=== PATIENT | male | born 1950 | race Caucasian/White ===

== ENCOUNTER 2017-01-27 05:45 | Inpatient (IN) ==
[2017-01-20 11:48] LABS: Basophils # 0.1 10*3/uL (0.0-0.2); Basophils % 0.7 % (0.0-0.8); Eosinophils # 0.2 10*3/uL (0.0-0.87); Eosinophils % 2.5 % (0.00-10.9); Hematocrit 42.6 VOL% (42.0-52.0); Hemoglobin 14.3 GM/DL (14.0-18.0); Immature Granulocytes Absolute 0.07 #; Lymphocytes # 1.7 10*3/uL (1.4-4.0); Lymphocytes % 22.8 % (21.2-54.2); Mean Corpuscular HGB Conc 33.6 GM/DL (32-36); Mean Corpuscular Hemoglobin 28 PG (27-34); Mean Corpuscular Volume 84.2 FL (87-102); Mean Platelet Volume 10.4 FL (9.6-12.0); Monocytes # 0.6 10*3/uL (0.11-0.8); Monocytes % 8.7 % (1.7-12.7); Neutrophils # 4.7 10*3/uL (1.4-7.4); Neutrophils % 64.3 % (38.7-73.9); Platelet Count 152 T/CUMM (130-400); Red Blood Count 5.06 MC/CUMM (3.8-5.5); Red Cell Distribution Width 14.7 % (9.3-17.3); White Blood Count 7.3 T/CUMM (4-12)
[2017-01-20 11:53] LABS: Apearance,Urine Slightly Hazy (Clear); Bilirubin,Urine Negative (Negative); Blood, Urine Negative (Negative); Glucose,Urine (UA) 50 mg/dL (Negative); Ketones,Urine Negative (Negative); Mucus,Urine Occasional /LPF (Occasional); Nitrite,Urine Negative (Negative); Protein,Urine Negative; RBC,Urine <1 /HPF (0-4); Squamous Epithelial Cell,Urine Occasional /HPF (0-10); Urine Color Yellow (Yellow); Urine Specific Gravity 1.018 (1.001-1.035); Urine Urobilinogen < 2.0 EU/DL (0.2-1.0); WBC,Urine 1 /HPF (0-6)
[2017-01-20 11:58] LABS: PT Patient Result 10.8 SECS; Partial Thromboplastin Time 28.2 SECS (0-40)
--- NOTE | 2017-01-20 12:14 | XRay Report ---
XR chest 2V Indication: Preop respiratory evaluation. Comparison: Chest x-ray 07/28/2016. Technique: PA and lateral chest x-ray was performed. Findings: Heart size, mediastinal contour, and hilar structures demonstrate no significant abnormalities. The lung parenchyma is clear. Bones and soft tissues demonstrate no significant abnormalities. Impression: 1. No active cardiopulmonary disease. 01/20/2017 12:11 PM PROCEDURE INTERPRETED AT [facility] DEPARTMENT OF RADIOLOGY Final Report Signed by: Dr. Pb Soni
[2017-01-20 12:22] LABS: Albumin 3.4 G/DL (3.4-5.0); Bilirubin,Total 0.6 MG/DL (0.2-1.0); Calcium 8.5 MG/DL (8.5-10.1); Osmolality,Calculated 285.7 MOS/KG (273-304); Potassium 4.1 MMOL/L (3.5-5.1); Total Protein 6.8 G/DL (6.4-8.3)
[2017-01-27] MEDS ORDERED: VANCOMYCIN 1,000 MG VIAL ONE ×2 (05:59→06:39)
[2017-01-27] MEDS ORDERED: ceFAZolin 1,000 MG VIAL ONE (05:59)
[2017-01-27] MEDS ORDERED: VANCOMYCIN INJ 1,000 MG in SODIUM CHLORIDE 0.9% 250 ML IV ONE ×2 (06:00→16:57)
[2017-01-27] MEDS ORDERED: SODIUM CHLORIDE 0.9% 100 ML IV ONE ×2 (06:00→09:00)
[2017-01-27] MEDS: LACTATED RINGERS 1,000 ML IV SCH ×2 (06:20→12:40)
[2017-01-27] MEDS ORDERED: BACITRACIN OINT 0.9 GM PACK TOP ONE (06:47)
--- NOTE | 2017-01-27 06:48 | History and Physical Update ---
History and Physical Update - History and Physical H&P was reviewed, the patient examined and there: are no changes in the patients condition since last H&P was completed.
[2017-01-27] MEDS ORDERED: TRANEXAMIC ACID 1,000 MG/10 ML VIAL IV ONE (06:51)
[2017-01-27] MEDS ORDERED: PHENYLEPHRINE 1 MG/10 ML SYRINGE IV ONE (07:00)
[2017-01-27] MEDS ORDERED: KETOROLAC 30 MG/1 ML VIAL ONE (07:00)
[2017-01-27] MEDS ORDERED: LIDOCAINE 1% 5 ML VIAL ONE (07:00)
[2017-01-27] MEDS ORDERED: GLYCOPYRROLATE 0.4 MG/2 ML VIAL ONE (07:00)
[2017-01-27] MEDS ORDERED: SUCCINYLCHOLINE 200 MG/10 ML VIAL ONE (07:00)
[2017-01-27] MEDS ORDERED: ONDANSETRON 4 MG/2 ML VIAL ONE (07:00)
[2017-01-27] MEDS ORDERED: PROPOFOL 200 MG/20 ML VIAL IV ONE (07:00)
[2017-01-27] MEDS ORDERED: ROPIVACAINE 0.5% 30 ML VIAL ONE (08:04)
[2017-01-27] MEDS ORDERED: GLUCAGON 1 MG VIAL IM PRN ×2 (08:56→16:40)
[2017-01-27] MEDS ORDERED: DEXTROSE 50% 25 GM/50 ML VIAL IV PRN ×2 (08:56→16:40)
[2017-01-27] MEDS ORDERED: diphenhydrAMINE CAP 25 MG CAPSULE PO PRN (08:57)
[2017-01-27] MEDS ORDERED: MORPHINE 2 MG/1 ML SYRINGE IV PRN ×2 (08:57)
[2017-01-27] MEDS ORDERED: ONDANSETRON 4 MG/2 ML VIAL IV PRN (08:57)
[2017-01-27] MEDS ORDERED: fentaNYL 100 MCG/2 ML VIAL ONE (08:58)
[2017-01-27] MEDS ORDERED: ePHEDrine 50 MG/ML AMP ONE (08:59)
[2017-01-27] MEDS ORDERED: MIDAZOLAM 2 MG/2 ML VIAL ONE (08:59)
[2017-01-27] MEDS ORDERED: HYDROmorphone 2 MG/1 ML VIAL ONE (08:59)
[2017-01-27] MEDS ORDERED: ACETAMINOPHEN 1,000 MG/100 ML VIAL IV ONE (09:00)
[2017-01-27] MEDS ORDERED: SEVOFLURANE 1 UNIT/15 MINUTE INH ONE (09:00)
--- NOTE | 2017-01-27 09:40 | Anesthesia Post-Op ---
Anesthesia Post OP - Post Ansesthetic Evaluation Patient seen in post op: Yes Resp: within normal limits CV: within normal limits Mental: within normal limits Temp: within normal limits Zvmi-[id number]-[id number]: within normal limits Nausea and Vomiting: within normal limits Pain: within normal limits
--- NOTE | 2017-01-27 10:39 | XRay Report ---
XR knee 2V RT Indication: Joint replacement (right knee) Comparison: No relevant comparison Technique: Frontal and lateral views of the right knee. Findings: Status post total right knee arthroplasty. No evidence of immediate hardware failure. Superficial skin oleksandr and surgical drain/s overlie the knee. Subcutaneous and joint space air noted which is likely postoperative. Enchondroma versus bone infarct within the distal femoral diaphysis measuring up to 5.7 cm. IMPRESSION: Status post total right knee arthroplasty. Enchondroma versus bone infarct within the distal femoral diaphysis measuring up to 5.7 cm. PROCEDURE INTERPRETED AT [facility] DEPARTMENT OF RADIOLOGY Final Report Signed by: Dr Collin Tineo
[2017-01-27] MEDS ORDERED: NITROGLYCERIN SL 0.4 MG TABLET SL PRN (11:53)
--- NOTE | 2017-01-27 11:53 | Operative Note ---
Date of procedure: 01/27/17 Procedure: DIAGNOSIS: Right knee primary osteoarthrosis PROCEDURE: Right total knee arthroplasty (cpt #26083) SURGEON: Zoey HYDROELECTRIC PLANT OPERATOR: Magnolia ANESTHESIA: Spinal with a postoperative adductor canal block PROCEDURE and FINDINGS: After adequate was induced, the patient's knee was prepped and draped in the usual sterile fashion. The limb was exsanguinated with Esmarch. Tourniquet was inflated to 300 mmHg. A median parapatellar approach was made. Femur was cut using an intramedullary guide and a 4 in 1 cutting jig in 5 degrees of valgus. ACL and menisci were excised. Tibia was cut using intramedullary guide. Patella was cut using freehand technique. Components were trialed. Tibial fin was prepared. Components are cemented in place using Palacos cement and modern cementing techniques. Cement was removed. A 1/8 inch Hemovac drain was placed. The knee was well-balanced and full range of motion with central tracking patella. Deep layers closed with 0-0 Vicryl. Superficial layers were closed with 2-0 and 3-0 Vicryl. Skin was approximated with oleksandr. Bacitracin and a sterile dressing was applied. Patient was transferred to recovery. A postoperative adductor canal block is anticipated. COMPONENTS: The Pepe Persona system was used. 12 CR femur, H natural tibia, 10 mm liner, 38 mm patella TOURNIQUET TIME: 45 minutes Surgeon / Physician: Andres Greer Jr. Results - Labs CBC & BMP: 01/20/17 11:37 01/20/17 11:37 Discharge Plan - Discharge Medications No Action Atorvastatin [Lipitor] 40 mg PO BEDTIME Aspirin [Ecotrin] 81 mg PO BEDTIME Glimepiride 4 mg PO BID Omeprazole Magnesium [Prilosec Otc] 20 mg PO DAILY Nitroglycerin Sl Tab [Nitrostat] 0.4 mg SL Q5M PRN PRN Reason: Pain Carvedilol [Coreg] 25 mg PO BID W/MEALS Insulin NPH Hum/Reg Insulin Hm [NovoLIN 70/30] 25 unit SUBCUT BID W/MEALS Clopidogrel [Plavix] 75 mg PO DAILY #30 tablet Furosemide Tab [Lasix Tab] 80 mg PO DAILY #30 tablet HYDROcodone/ACETAMIN 10-325 [[place] 10-325] 1 tablet PO Q4H PRN #30 tablet PRN Reason: Pain Severe (8-10) Isosorbide Dinitrate [Isordil] 20 mg PO TID #90 tablet hydrALAZINE TAB [Apresoline Tab] 100 mg PO TID #90 tablet Amlodipine Besylate 5 mg PO DAILY Montelukast Sodium 10 mg PO BEDTIME Cilostazol [Pletal] 50 mg PO BID Levothyroxine Tab [Synthroid Tab] 175 mcg PO DAILY@0700 Valsartan [Diovan] 160 mg PO DAILY #30 tablet Venlafaxine Xr [Effexor XR] 75 mg PO DAILY - Follow Up or Referral - Forms/Instructions
[2017-01-27] MEDS: INSULIN LISPRO 100 UNIT/ML SUBCUT SCH ×3 (13:30→21:58)
[2017-01-27] MEDS: DOCUSATE SODIUM 100 MG CAPSULE PO SCH ×2 (13:30→20:59)
[2017-01-27] MEDS: ACETAMINOPHEN 500 MG TABLET PO SCH ×2 (13:32→18:42)
[2017-01-27] MEDS: ceFAZolin 2,000 MG in PREMIX 1 EACH IV SCH ×2 (13:36→20:58)
--- NOTE | 2017-01-27 13:51 | Cardiology Consult Note ---
Jon Gaviria Vanessa, RN, am scribing for, and in the presence of, Romeo Emery MD 13:51. Assessment and Plan - Time spent with patient Time spent with patient: Greater than 30 minutes (Due to assessment, planning, talking patient, medication review) (1) STEFANI on CPAP Status: Chronic Assessment and plan: Patient uses CPAP routinely and without fail. Current Visit: Yes (2) Chronic kidney disease, stage III (moderate) Status: Chronic Assessment and plan: Most recent creatinine 2.2 with GFR 47 on January 20. Review of old records documents renal insufficiency after July admission for volume overload and diastolic dysfunction which improved after diuresis but creatinine remained elevated 2-3. Appears baseline. Current Visit: No (3) Hypothyroid Status: Chronic Assessment and plan: Synthroid has been continued Current Visit: No (4) CAD (coronary artery disease), [place] coronary artery Status: Chronic Assessment and plan: Appears to be stable at this time. Plavix has been continued postoperatively. Current Visit: No (5) Diabetes mellitus Status: Chronic Assessment and plan: Accu-Chek 182. Continue current plan of care. Current Visit: No Qualifiers: (6) Dyslipidemia Status: Chronic Assessment and plan: Statin continued postoperatively. Current Visit: No (7) HTN (hypertension) Status: Chronic Assessment and plan: Suboptimally controlled at this time. His routine antihypertensives have been resumed postoperatively, and we will follow-up. Current Visit: No (8) Morbid obesity Status: Chronic Current Visit: No History of Present Illness - Data of Consult Patient: known to practice within the last 3 years Consult date: 01/27/17 Requesting Physician: Andres Greer Jr. 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 GOODE CARDIOLOGY CONSULT NOTE: PERIOPERATIVE MANAGEMENT; S/P RIGHT TKR Mr. Coates is a 66 year old white male with risk factors significant for: Hypertension, dyslipidemia, diabetes, morbid obesity, age, sedentary lifestyle, personal and family history of CAD, former tobacco use. He has obstructive sleep apnea and uses CPAP routinely. Past medical history includes hypothyroidism, chronic kidney disease, DVT, PAD, bladder cancer. Last cardiac catheterization in September 2015, and at that time he underwent percutaneous coronary intervention to the mid circumflex using drug-eluting stent and PTCA of first diagonal branch. 2D echo July 2016 with moderate LVH and diastolic dysfunction with ejection fraction 55%, mild TR with PA pressure of 14.6 mmHg. He required preoperative cardiovascular clearance due to cardiac history, and he was seen by Dr. Jigar Goode clinic on January 24. 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 He was low to moderate risk for cardiovascular event. Admitted to hospital today for right total knee replacement. Cardiology is asked to see for perioperative management. He is awake and alert visiting with family at bedside. Denies recent or current chest pain, shortness of breath, orthopnea, PND, palpitations. His only complaint at this time is of some mild knee discomfort at surgical site. Right lower extremity with dry and intact surgical dressing, drain cooling mechanism in place. Systolic BP is 150-160 mm artery. Pulse is 70s and regular by exam. No significant lower extremity edema, distal pulses present and palpable bilaterally. Patient is stable postop and doing well. We will follow serial EKGs. CC: Andres Greer Jr., - Home Medications and Allergies Home Medications: Home Medications Medication Instructions Recorded Confirmed Type Aspirin [Ecotrin] 81 mg PO BEDTIME 09/17/15 01/27/17 History Atorvastatin [Lipitor] 40 mg PO BEDTIME 09/17/15 01/27/17 History Glimepiride 4 mg PO BID 09/17/15 01/27/17 History Nitroglycerin Sl Tab [Nitrostat] 0.4 mg SL Q5M PRN 10/01/15 01/27/17 History Omeprazole Magnesium [Prilosec Otc] 20 mg PO DAILY 10/01/15 01/27/17 History Carvedilol [Coreg] 25 mg PO BID W/MEALS 07/28/16 01/27/17 History Insulin NPH Hum/Reg Insulin Hm 25 unit SUBCUT BID W/MEALS 07/28/16 01/27/17 History [NovoLIN 70/30] Levothyroxine Tab [Synthroid Tab] 175 mcg PO DAILY@0700 07/28/16 01/27/17 History Clopidogrel [Plavix] 75 mg PO DAILY #30 tablet 07/31/16 01/27/17 Rx Furosemide Tab [Lasix Tab] 80 mg PO DAILY #30 tablet 07/31/16 01/27/17 Rx HYDROcodone/ACETAMIN 10-325 [[place] 1 tablet PO Q4H PRN #30 tablet 07/31/1601/27 Rx 10-325] Isosorbide Dinitrate [Isordil] 20 mg PO TID #90 tablet 07/31/16 01/27/17 Rx Valsartan [Diovan] 160 mg PO DAILY #30 tablet 07/31/16 01/27/17 Rx hydrALAZINE TAB [Apresoline Tab] 100 mg PO TID #90 tablet 07/31/16 01/27/17 Rx Amlodipine Besylate 5 mg PO DAILY 01/20/17 01/27/17 History Cilostazol [Pletal] 50 mg PO BID 01/20/17 01/27/17 History Montelukast Sodium 10 mg PO BEDTIME 01/20/17 01/27/17 History Venlafaxine Xr [Effexor XR] 75 mg PO DAILY 01/20/17 01/27/17 History Allergies/Adverse Reactions: Allergies Allergy/AdvReac Type Severity Reaction Status Date / Time codeine Allergy Unknown Verified 09/16/15 14:14 meperidine [From Demerol] AdvReac Hallucinati Verified 12/11/14 08:57 ng - Constitutional Constitutional: Present: as per HPI - EENT Eyes: Present: as per HPI Ears: Present: as per HPI Nose, mouth and throat: Present: as per HPI - Cardiovascular Cardiovascular: Present: as per HPI - Respiratory Respiratory: Present: as per HPI - Gastrointestinal Gastrointestinal: Present: as per HPI - Genitourinary Genitourinary: Present: as per HPI - Musculoskeletal Musculoskeletal: Present: as per HPI - Neurological Neurological: Present: as per HPI - Psychiatric Psychiatric: Present: as per HPI - Endocrine Endocrine: Present: as per HPI - Hematologic/Lymphatic Hematologic/Lymphatic: Present: as per HPI Medical,Surgical,& Family Hx - Medical History Cardio: History of: Cerebrovascular Disease, CHF, CAD, Hypertension, MD, PVD, Cardiovascular Problems No history of: Aneurysm, Cardiac Dysrhythmia, Congenital Heart Disease, Pacemaker, Valvular Heart Disease Psychological: History of: Depression No history of: Anxiety Disorders, ADHD, Behavior Problems, Bipolar Disorder, Previous Suicide Attempt, Psychiatric/Substance Abuse Tx, Schizophrenia, Violent Behavior, Psychiatric Problems Neurology: History of: TIA No history of: Seizures HEENT: History of: Ear Problem (busted eardrum), Eye Problem (GLASSES), Dental Problems (multiple teeth removed) No history of: Glaucoma, Oral Cancer, HEENT Problems Endocrine: History of: Diabetes Mellitus (IDDM), Diabetes Mellitus (NIDDM), Dyslipidemia, Thyroid Disorder, Endocrine Problems No history of: Adrenal Disease, Endocrine Cancer Rheumatology: History of;: Rheumatological Problems No history of;: Fibromyalgia, Gout, Myasthenia Gravis, Psoriasis, Rheumatoid Arthritis, Sjogrens, Systemic Lupus Erythematosus Respiratory: History of: Intubation, Obstructive Sleep Apnea (Cpap) No history of: Asthma, Bronchitis, COPD, Pulmonary Embolism, Pulmonary Hypertension, Pneumonia, Lung Cancer, Respiratory Problems Renal: History of: Renal (Kidney) Cancer, Renal Problems (low-grade chronic renal failure) No history of: Dialysis, Renal Failure Genitourinary: History of: Bladder Problem (TUMORS REMOVED), Kidney Stones, Prostate Problems (SMALL FOR PT AGE DR CARL), Genitourinary Cancer, Problems No history of: Recurring Urinary Tract Infections Gastrointestinal: History of: GERD, Hemorrhoids, Pancreatitis No history of: Bowel Obstruction, Clostridium Difficile, Crohn's Disease, Diverticulitis/ Diverticulosis, Esophageal Varices, Gastrointestinal Bleed, Hematochezia, Hepatitis, Liver Problems, Polyps, Ulcerative Colitis, Gastrointestinal Cancer, GI Problems Musculoskeletal: History of: Back/Neck Problems, Musculoskeletal Problems No history of: Amputation, Degenerative Disk Disease, Herniated Disk, Osteoporosis, Musculoskeletal Cancer Hematology: No history of: Anemia, Blood Transfusion Reaction, Bleeding Problems, Clotting Problems, Sickle Cell Disease, Hematologic Cancer, Blood Disorders Other: History of: Cancer (bladder tumors), Miscellaneous Medical Problems No history of: Anesthesia Reactions, Anaphylaxis, Eczema, HIV, Malignant Hyperthermia, MRSA, Vancomycin-Resistant Enterococci, Skin Problems - Surgical History Cardiac Surgeries: Sugical HX of: Cardiac Catheterization ([address] BETHEA) Patient Denies: Femoral-Popliteal Bypass Graft, Cardiac Surgery, Carotid Endarterectomy, Internal Defibrillator, Vascular Access Devices Thoracic Surgeries: Surgical HX of;: Lithotripsy Patient denies;: Kidney (Renal Surgery), Nephrectomy, Organ Transplant, Lobectomy Neurologic Surgeries: Patient denies: Neurologic Surgery HEENT Surgeries: Patient denies: Carotid Endarterectomy, Eye Surgery, Thyroid Surgery, Tonsilectomy & Adenoidectomy Abdominal Surgeries: Surgical HX of: Abdominal Surgery, Cholecystectomy, EGD Patient denies: Appendectomy, Colonoscopy, Gastric Bypass Surgery, Hernia Repair, Splenectomy Reproductive Surgeries: Surgical HX of;: Cystoscopy, Genitourinary Surgery Patient denies;: Prostate Surgery Orthopedic Surgeries: Surgical HX of;: Orthopedic Surgery, Total Knee Replacement (RIGHT) Patient denies;: Implanted Devices, Spinal Surgery, Total Hip Replacement - Family History Family History: Reports;: Family Cancer (father - skin cancer), Family Diabetes (grandmother and siblings), Family Heart Disease (father), Family Hypertension ( father, sister,brother) Denies;: Family Anesthesia Reaction, Family Psychiatric Problems, Family Stroke - Social History Smoking Status: Never smoker Frequency of Alcohol Use: None Type of Drug Use: None Physical Examination Vital Signs Temp Pulse Resp BP Pulse Ox 98.5 F 61 20 152/75 97 01/27/17 06:24 01/27/17 06:24 01/27/17 06:24 01/27/17 06:24 01/27/17 06:24 General: Present: No Apparent Distress, Other (overweight) Neck: Present: Supple Neck, Midline Trachea, No JVD/HJR, No Masses, No Bruit Cardiac: Present: Reg Rate and Rhythm, No Murmur. Absent: Tachycardia, Bradycardia Lungs: Present: Oxygen, No Wheezes, Other (slightly coarse breath sounds left upper lobes) Neuro: Present: Grossly Intact. Absent: Tingling, Resting Tremor, Essential Tremor Abdomen: Present: Soft, Active Bowel Sounds, Other (obese). Absent: Ascites, Tender, Firm Skin: Present: Clear. Absent: Rash, Suspicious Lesions Musculoskeletal: Present: Decreased Range of Motion Extremities: Present: No Clubbing, No Cyanosis, No Edema, Normal Upper Extr. Pulses (3+ bilaterally), Normal Lower Extr. Pulses (2+ bilaterally), Capillary Refill (Normal). Absent: Edema Result/EKG - Labs CBC & BMP: 01/20/17 11:37 01/20/17 11:37 Lab Results: I have reviewed the past 24 hour labs Labs: Laboratory Results - last 24 hr 01/27/17 01/27/17 01/27/17 06:18 06:18 12:17 POC Glucose 84 182 H Blood Type A POSITIVE Antibody Screen Negative - Diagnostic Findings Procedure: Chest x-ray: image reviewed by me, report reviewed by me - EKG EKG results: interpreted by me, no acute changes EKG shows: sinus rhythm Quality Measures - VTE Contraindication to Pharmacological VTE Prophylaxis: Already on Theraputic Agent , No Prophylaxis Needed Rupert Gaviria Wesley, MD, personally performed the services described in this documentation, ascribed by Erin Webb RN in my presence, and it is both accurate and complete .
[2017-01-27] MEDS: ISOSORBIDE DINITRATE 20 MG TABLET PO SCH ×2 (16:44→20:59)
[2017-01-27] MEDS: CARVEDILOL 25 MG TABLET PO SCH (16:44)
[2017-01-27] MEDS: INSULIN NPH/REGULAR 70/30 100 UNIT/ML SUBCUT SCH (16:45)
[2017-01-27] MEDS: KETOROLAC 30 MG/1 ML VIAL IV SCH ×2 (16:46→21:59)
--- NOTE | 2017-01-27 17:39 | Orthopedic Progress Note ---
Orthopedics - Subjective Interval history: Comfortable. He sat in a chair roughly an hour. Dressing clean, dry and intact. Right lower extremities neurovascular change. Plan: Mobilize with physical therapy. Discussed discharge options. The patient 's son is hospitalized with a heart attack. Exam - Constitutional Vitals: Period Temp Pulse Resp BP Sys/Gardner Pulse Ox Last 24 Hr 97.0 F-98.9 F 61-77 12-20 93-160/56-90 92-98 Results - Labs CBC & BMP: 01/20/17 11:37 01/20/17 11:37 Quality Measures - VTE Contraindication to Pharmacological VTE Prophylaxis: Already on Theraputic Agent , No Prophylaxis Needed
[2017-01-27] MEDS: ASPIRIN EC 81 MG TABLET PO SCH (20:59)
[2017-01-27] MEDS: MONTELUKAST 10 MG TABLET PO SCH (20:59)
[2017-01-27] MEDS: CILOSTAZOL 50 MG TABLET PO SCH (20:59)
[2017-01-27] MEDS: ATORVASTATIN 40 MG TABLET PO SCH (20:59)
[2017-01-27] MEDS: GLIMEPIRIDE 4 MG TABLET PO SCH (21:00)
[2017-01-28] MEDS: ACETAMINOPHEN 500 MG TABLET PO SCH ×2 (00:02→07:48)
[2017-01-28] MEDS: LACTATED RINGERS 1,000 ML IV SCH ×3 (02:49→12:52)
[2017-01-28] MEDS: KETOROLAC 30 MG/1 ML VIAL IV SCH ×2 (03:46→09:45)
[2017-01-28] MEDS: oxyCODONE IR 5 MG TABLET PO PRN ×2 (03:46→22:20)
[2017-01-28 04:53] LABS: Basophils % 0.2 % (0.0-0.8); Hematocrit 35.6 VOL% (42.0-52.0); Hemoglobin 11.9 GM/DL (14.0-18.0); Immature Granulocytes % 0.9 %; Immature Granulocytes Absolute 0.09 #; Lymphocytes # 1.1 10*3/uL (1.4-4.0); Lymphocytes % 11.2 % (21.2-54.2); Mean Corpuscular HGB Conc 33.4 GM/DL (32-36); Mean Corpuscular Hemoglobin 28 PG (27-34); Mean Corpuscular Volume 82.8 FL (87-102); Mean Platelet Volume 11.1 FL (9.6-12.0); Monocytes # 0.9 10*3/uL (0.11-0.8); Monocytes % 8.6 % (1.7-12.7); Neutrophils # 7.9 10*3/uL (1.4-7.4); Neutrophils % 79.1 % (38.7-73.9); Platelet Count 140 T/CUMM (130-400); Red Cell Distribution Width 14.3 % (9.3-17.3)
[2017-01-28 05:24] LABS: Calcium 8.1 MG/DL (8.5-10.1); Potassium 4.3 MMOL/L (3.5-5.1)
--- NOTE | 2017-01-28 07:25 | EKG Report ---
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
[2017-01-28] MEDS: LEVOTHYROXINE 175 MCG TABLET PO SCH (07:49)
[2017-01-28] MEDS: INSULIN LISPRO 100 UNIT/ML SUBCUT SCH ×4 (07:56→21:55)
[2017-01-28] MEDS: INSULIN NPH/REGULAR 70/30 100 UNIT/ML SUBCUT SCH ×2 (07:57→17:36)
[2017-01-28] MEDS: CARVEDILOL 25 MG TABLET PO SCH ×2 (09:43→17:36)
[2017-01-28] MEDS: amLODIPine 5 MG TABLET PO SCH (09:44)
[2017-01-28] MEDS: ISOSORBIDE DINITRATE 20 MG TABLET PO SCH ×3 (09:44→20:16)
[2017-01-28] MEDS: VENLAFAXINE XR 75 MG CAPSULE PO SCH (09:44)
[2017-01-28] MEDS: CLOPIDOGREL 75 MG TABLET PO SCH (09:44)
[2017-01-28] MEDS: DOCUSATE SODIUM 100 MG CAPSULE PO SCH ×2 (09:44→20:15)
[2017-01-28] MEDS: CILOSTAZOL 50 MG TABLET PO SCH ×2 (09:44→20:15)
[2017-01-28] MEDS: FUROSEMIDE 80 MG TABLET PO SCH (09:44)
[2017-01-28] MEDS: GLIMEPIRIDE 4 MG TABLET PO SCH ×2 (09:44→20:16)
[2017-01-28] MEDS: VALSARTAN 160 MG TABLET PO SCH (09:44)
[2017-01-28] MEDS: PANTOPRAZOLE 40 MG TABLET PO SCH (09:45)
--- NOTE | 2017-01-28 10:36 | Physician Query Form ---
CLICK EDIT DOCUMENT TO SELECT QUERY ANSWER --> OK --> SIGN Ivelisse Hawkins RN Clinical Over The Road Driver W) [phone] (f) [phone] [email or web address]: Make your selection(s) from the choices in EACH section by typing an "x" and enter comments in the comment section. Please use your independent medical judgment in providing your response. This request does not imply that any particular answer is desired or expected. CLINICAL INDICATORS: (Providers should not edit this section) Based on documentation of "history of CHF", Echo done 07/29/16 showed normal LV systolic function, EF 55% with Grade 1/4 diastolic dysfunction. Pt. treated with PO Lasix as home medication. Please provide further specificity regarding CHF. TYPE: ( ) Systolic (HFrEF - heart failure with reduced systolic function/EF) ( ) Diastolic (HFpEF - heart failure with preserved systolic function/EF) ( ) Combined Systolic/Diastolic ( ) Other, please specify: ( ) Clinically unable to determine ( ) The patient does NOT have CHF COMMENTS: PLEASE ALSO DOCUMENT RESPONSE IN PROGRESS NOTES AND/OR DISCHARGE SUMMARY Use of terms such as suspected, likely, or probable (associated with a specific diagnosis that is being evaluated, monitored, or treated as if it exists) are acceptable and can be restated in the discharge summary if not ruled out. MTDD
--- NOTE | 2017-01-28 10:45 | Discharge Summary ---
Hospital Course - Hospital Course Hospital Course: Junior Coates was admitted after undergoing an uncomplicated right total knee arthroplasty. He received perioperative DVT and antimicrobial prophylaxis. Received physical therapy. Cardiology was consulted perioperatively. Right lower extremity shows some slight serosanguineous drainage distally. Is neurovascularly unchanged. Range of motion is from 0-90 actively today. Specialty Discharge - Follow Up or Referrals Follow up with: Andres Greer Jr., MD [Physician] - 03/03/17 8:35 am () Discharge Plan - Discharge Data Disposition: Disch/Xfer to Snf Condition at Discharge: Stable Discharge Diet: diabetic diet Hygiene: may shower Weight Bearing at Discharge: weight bear as tolerated Driving: not until seen by doctor - Discharge Medications New Insulin Lispro [HumaLOG] See Protocol SUBCUT ACHS unit HYDROcodone/ACETAMIN 10-325 [[place] 10-325] 1 tablet PO Q4H PRN tablet PRN Reason: Pain Moderate (4-7) Continue Atorvastatin [Lipitor] 40 mg PO BEDTIME Aspirin [Ecotrin] 81 mg PO BEDTIME Glimepiride 4 mg PO BID Omeprazole Magnesium [Prilosec Otc] 20 mg PO DAILY Nitroglycerin Sl Tab [Nitrostat] 0.4 mg SL Q5M PRN PRN Reason: Pain Carvedilol [Coreg] 25 mg PO BID W/MEALS Insulin NPH Hum/Reg Insulin Hm [NovoLIN 70/30] 25 unit SUBCUT BID W/MEALS Clopidogrel [Plavix] 75 mg PO DAILY #30 tablet Furosemide Tab [Lasix Tab] 80 mg PO DAILY #30 tablet HYDROcodone/ACETAMIN 10-325 [[place] 10-325] 1 tablet PO Q4H PRN #30 tablet PRN Reason: Pain Severe (8-10) Isosorbide Dinitrate [Isordil] 20 mg PO TID #90 tablet hydrALAZINE TAB [Apresoline Tab] 100 mg PO TID #90 tablet Amlodipine Besylate 5 mg PO DAILY Montelukast Sodium 10 mg PO BEDTIME Cilostazol [Pletal] 50 mg PO BID Levothyroxine Tab [Synthroid Tab] 175 mcg PO DAILY@0700 Valsartan [Diovan] 160 mg PO DAILY #30 tablet Venlafaxine Xr [Effexor XR] 75 mg PO DAILY - Follow Up or Referral Follow Up: Andres Greer Jr., MD [Physician] - 03/03/17 8:35 am () - Forms/Instructions Additional Discharge Instructions: Daily dry dressing changes. Weightbearing as tolerated. Arrange walker and bedside commode for home use. Wear BRANDY hose for 1 month. Discontinue oleksandr and Steri-Strip wound on February 08, 2017. Follow-up appointment in 4 weeks. Prescription for [place] 10 was written. Exam - Constitutional Vitals: Period Temp Pulse Resp BP Sys/Gardner Pulse Ox Last 24 Hr 98.0 F-99.1 F 69-86 17-20 117-169/57-95 93-99 Discharge Results Procedures and tests throughout hospitalization: Pending Orders 01/29/17 04:00 Comp Blood Count Auto Diff IN AM 01/30/17 04:00 Comp Blood Count Auto Diff IN AM Labs on day of discharge: Labs from last 24 hours 01/28/17 01/28/17 01/28/17 06:55 04:36 04:36 WBC 10.0 RBC 4.30 Hgb 11.9 L Hct 35.6 L MCV 82.8 L MCH 28 MCHC 33.4 RDW 14.3 Plt Count 140 MPV 11.1 Neut % (Auto) 79.1 H Lymph % (Auto) 11.2 L Williams % (Auto) 8.6 Eos % (Auto) 0.0 Baso % (Auto) 0.2 Neut # (Auto) 7.9 H Lymph # (Auto) 1.1 L Williams # (Auto) 0.9 H Eos # (Auto) 0.0 Baso # (Auto) 0.0 Immature Gran % 0.9 Nucleated RBC % 0.0 Immature Gran # 0.09 Nucleated RBCs # 0.00 Sodium 136 Potassium 4.3 Chloride 103 Carbon Dioxide 23 Anion Gap 14.3 BUN 37 H Creatinine 2.50 H GFR Calculation 41 BUN/Creatinine Ratio 14.00 Glucose 128 H POC Glucose 138 H Calculated Osmolality 282.0 Calcium 8.1 L 01/27/17 01/27/17 01/27/17 20:58 15:37 12:17 WBC RBC Hgb Hct MCV MCH MCHC RDW Plt Count MPV Neut % (Auto) Lymph % (Auto) Williams % (Auto) Eos % (Auto) Baso % (Auto) Neut # (Auto) Lymph # (Auto) Williams # (Auto) Eos # (Auto) Baso # (Auto) Immature Gran % Nucleated RBC % Immature Gran # Nucleated RBCs # Sodium Potassium Chloride Carbon Dioxide Anion Gap BUN Creatinine GFR Calculation BUN/Creatinine Ratio Glucose POC Glucose 255 H 253 H 182 H Calculated Osmolality Calcium DS: Provider Date of admission: 01/27/17 05:45 Primary care physician: ANGEL Tran Attending physician on admission: Andres Greer Jr., Consults: 01/27/17 08:57 Consult to Case Mgmt/Social Srvs [CONS] Routine Reason for Case Mgmt/Social Srvs: Rehab Home Health Equipment Consult Comment: Bedside Commode, CPM, Walker Consult to Occupational Therapy [CONS] Routine Reason for Occupational Therapy: Evaluate and Treat Consult Comment: ADL's Consult to Physical Therapy [CONS] Routine Reason for Physical Therapy: Evaluate and Treat Gait Training Start Therapy: Today 01/27/17 10:11 Consult to Physician [CONS] Routine Comment: Consulting Provider: Yung Lagunas Consulting Provider Notified: Yes When should Consulting Provider be notified: Now Person Notified: Carlos costa Date Notified: 01/27/17 Time Notified: 10:15 Discharging clinician: Andres Greer Jr., Expected date of discharge: 01/31/17
--- NOTE | 2017-01-28 11:16 | Pathology Report from [facility] ---
[facility] [place] ACCESSION # : [id number] PATIENT NAME : Junior Vero Hubbard ORDERING DR : ARTEMIO SÁNCHEZ MD CLINICAL HX: Right knee osteoarthritis POST-OP DX: Same SPECIMEN INFO: Right knee bone and tissue GROSS DESCRIPTION: Received in formalin labeled JUNIOR HUBBARD are multiple fragments of bone, cartilage and adipose tissue measuring collectively 14.5 x 15.8 cm. The articular surfaces are focally degenerative with areas of subchondral eburnation measuring up to 2 cm. Cardiac Rehab Nurse sections are submitted in one cassette. DIAGNOSIS FOR JUNIOR Vero HUBBARD: Fragments of right knee joint showing changes of degenerative joint disease/ osteoarthritis. COLLECTED DATE: 01/27/2017 [facility] REPORT DATE: 01/28/2017 ELECTRONICALLY SIGNED BY: Sami Masters M.D. 01/28/2017 - 9:26:33 [facility]
--- NOTE | 2017-01-28 11:34 | Cardiology Progress Note ---
Jon Gaviria Vanessa, RN, am scribing for, and in the presence of, Romeo Emery MD 11:34. Assessment and Plan - Time spent with patient Time spent with patient: Greater than 30 minutes (1) Status post total right knee replacement Status: Acute Assessment and plan: POD #1 s/p right knee replacement. Current Visit: Yes (2) STEFANI on CPAP Status: Chronic Assessment and plan: Patient uses CPAP routinely and without fail. Current Visit: Yes (3) Chronic kidney disease, stage III (moderate) Status: Chronic Assessment and plan: Most recent creatinine 2.5 with GFR 41. Review of old records documents renal insufficiency after July admission for volume overload and diastolic dysfunction which improved after diuresis but creatinine remained elevated 2-3. Appears baseline. Current Visit: No (4) Hypothyroid Status: Chronic Assessment and plan: Synthroid has been continued Current Visit: No (5) CAD (coronary artery disease), [place] coronary artery Status: Chronic Assessment and plan: Appears to be stable at this time. Plavix and beta roxy has been continued postoperatively. Current Visit: No (6) Diabetes mellitus Status: Chronic Assessment and plan: Glucose well controlled. Current plan of care. Current Visit: No Qualifiers: (7) Dyslipidemia Status: Chronic Assessment and plan: Statin continued postoperatively. Current Visit: No (8) HTN (hypertension) Status: Chronic Assessment and plan: Blood pressure is better controlled today. Antihypertensives have been resumed postoperatively. 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 GOODE CARDIOLOGY CONSULT NOTE: PERIOPERATIVE MANAGEMENT; S/P RIGHT TKR Mr. Coates is a 66 year old white male with risk factors significant for: Hypertension, dyslipidemia, diabetes, morbid obesity, age, sedentary lifestyle, personal and family history of CAD, former tobacco use. He has obstructive sleep apnea and uses CPAP routinely. Past medical history includes hypothyroidism, chronic kidney disease, DVT, PAD, bladder cancer. Last cardiac catheterization in September 2015, and at that time he underwent percutaneous coronary intervention to the mid circumflex using drug-eluting stent and PTCA of first diagonal branch. 2D echo July 2016 with moderate LVH and diastolic dysfunction with ejection fraction 55%, mild TR with PA pressure of 14.6 mmHg. He required preoperative cardiovascular clearance due to cardiac history, and he was seen by Dr. Jigar Goode clinic on January 24. Nuclear testing revealed small reversible perfusion abnormality suggestive of mild ischemia and medium reversible abnormality of inferior region with scarring ( patient has a history of known FINE ARTS MODEL of RCA). He was low to moderate risk for cardiovascular event. Admitted to hospital today for right total knee replacement. Cardiology is asked to see for perioperative management. January: Mr. Coates is POD #1 status post total right knee replacement. He is awake and alert sitting up in bedside chair this morning. No acute distress. No chest pain. No shortness of breath at rest. No worsening in severity of shortness of breath with exertion. Good appetite and no N/V. Reports he had a difficult time voiding overnight, was unable to. In and out cath performed with no return but bladder scan with approximate residual 684 ml's. He was later able to void 300 mls urine. Biggest complaint is of right knee discomfort at surgical site and of lower back pain related to bedrest and is now improved some since getting up to chair. SBP 120-130 mmHg. Pulse 80s and regular. Labs reviewed. H&H stable 11.9/35.6. Sodium 136, K+ 4.3. Creatinine 2.5 with GFR 41. (Baseline creatinine 2-3) Exam (Progress Note) - Constitutional Vitals: Period Temp Pulse Resp BP Sys/Gardner Pulse Ox Last 24 Hr 98.0 F-99.1 F 69-86 17-20 117-169/57-95 93-99 Exam: General: Present: No Apparent Distress, Other (overweight) Neck: Present: Supple Neck, Midline Trachea, No JVD/HJR, No Masses, No Bruit Cardiac: Present: Reg Rate and Rhythm, No Murmur. Absent: Tachycardia, Bradycardia Lungs: Present: Oxygen, No Wheezes, Other (slightly coarse breath sounds left upper lobes) Neuro: Present: Grossly Intact. Absent: Tingling, Resting Tremor, Essential Tremor Abdomen: Present: Soft, Active Bowel Sounds, Other (obese). Absent: Ascites, Tender, Firm Skin: Present: Clear. Absent: Rash, Suspicious Lesions Musculoskeletal: Present: Decreased Range of Motion Extremities: Present: No Clubbing, No Cyanosis, No Edema, Normal Upper Extr. Pulses (3+ bilaterally), Normal Lower Extr. Pulses (2+ bilaterally), Capillary Refill (Normal). Absent: Edema Result/EKG - Labs CBC & BMP: 01/28/17 04:36 01/28/17 04:36 Lab Results: I have reviewed the past 24 hour labs Labs: Laboratory Results - last 24 hr 01/27/17 01/27/17 01/27/17 12:17 15:37 20:58 WBC RBC Hgb Hct MCV MCH MCHC RDW Plt Count MPV Neut % (Auto) Lymph % (Auto) [place] % (Auto) Eos % (Auto) Baso % (Auto) Neut # (Auto) Lymph # (Auto) [place] # (Auto) Eos # (Auto) Baso # (Auto) Immature Gran % Nucleated RBC % Immature Gran # Nucleated RBCs # Sodium Potassium Chloride Carbon Dioxide Anion Gap BUN Creatinine GFR Calculation BUN/Creatinine Ratio Glucose POC Glucose 182 H 253 H 255 H Calculated Osmolality Calcium 01/28/17 01/28/17 01/28/17 04:36 04:36 06:55 WBC 10.0 RBC 4.30 Hgb 11.9 L Hct 35.6 L MCV 82.8 L MCH 28 MCHC 33.4 RDW 14.3 Plt Count 140 MPV 11.1 Neut % (Auto) 79.1 H Lymph % (Auto) 11.2 L [place] % (Auto) 8.6 Eos % (Auto) 0.0 Baso % (Auto) 0.2 Neut # (Auto) 7.9 H Lymph # (Auto) 1.1 L [place] # (Auto) 0.9 H Eos # (Auto) 0.0 Baso # (Auto) 0.0 Immature Gran % 0.9 Nucleated RBC % 0.0 Immature Gran # 0.09 Nucleated RBCs # 0.00 Sodium 136 Potassium 4.3 Chloride 103 Carbon Dioxide 23 Anion Gap 14.3 BUN 37 H Creatinine 2.50 H GFR Calculation 41 BUN/Creatinine Ratio 14.00 Glucose 128 H POC Glucose 138 H Calculated Osmolality 282.0 Calcium 8.1 L - EKG EKG results: interpreted by me, no acute changes EKG shows: sinus rhythm Quality Measures - VTE Contraindication to Pharmacological VTE Prophylaxis: Already on Theraputic Agent , No Prophylaxis Needed Specialty Discharge - Follow Up or Referrals Follow up with: Andres Greer Jr., MD [Physician] - Rupert Gaviria Wesley, MD, personally performed the services described in this documentation, ascribed by Erin Webb RN in my presence, and it is both accurate and complete .
[2017-01-28] MEDS: CELECOXIB 200 MG CAPSULE PO SCH (14:34)
[2017-01-28] MEDS: ATORVASTATIN 40 MG TABLET PO SCH (20:15)
[2017-01-28] MEDS: ASPIRIN EC 81 MG TABLET PO SCH (20:16)
[2017-01-28] MEDS: MONTELUKAST 10 MG TABLET PO SCH (20:16)
[2017-01-29 05:16] LABS: Basophils % 0.5 % (0.0-0.8); Eosinophils # 0.3 10*3/uL (0.0-0.87); Eosinophils % 4.2 % (0.00-10.9); Hematocrit 34.7 VOL% (42.0-52.0); Hemoglobin 11.4 GM/DL (14.0-18.0); Immature Granulocytes % 1.1 %; Immature Granulocytes Absolute 0.09 #; Lymphocytes # 1.3 10*3/uL (1.4-4.0); Lymphocytes % 16.3 % (21.2-54.2); Mean Corpuscular HGB Conc 32.9 GM/DL (32-36); Mean Corpuscular Hemoglobin 28 PG (27-34); Mean Platelet Volume 10.7 FL (9.6-12.0); Monocytes # 0.7 10*3/uL (0.11-0.8); Monocytes % 9.4 % (1.7-12.7); Neutrophils # 5.4 10*3/uL (1.4-7.4); Neutrophils % 68.5 % (38.7-73.9); Platelet Count 131 T/CUMM (130-400); Red Blood Count 4.13 MC/CUMM (3.8-5.5); Red Cell Distribution Width 14.8 % (9.3-17.3); White Blood Count 7.9 T/CUMM (4-12)
[2017-01-29] MEDS: oxyCODONE IR 5 MG TABLET PO PRN ×2 (05:59→20:51)
[2017-01-29] MEDS: LEVOTHYROXINE 175 MCG TABLET PO SCH (06:01)
[2017-01-29] MEDS: INSULIN LISPRO 100 UNIT/ML SUBCUT SCH ×4 (08:36→20:50)
[2017-01-29] MEDS: CARVEDILOL 25 MG TABLET PO SCH ×2 (08:36→18:11)
[2017-01-29] MEDS: amLODIPine 5 MG TABLET PO SCH (08:37)
[2017-01-29] MEDS: GLIMEPIRIDE 4 MG TABLET PO SCH ×2 (08:37→20:51)
[2017-01-29] MEDS: DOCUSATE SODIUM 100 MG CAPSULE PO SCH ×2 (08:37→20:50)
[2017-01-29] MEDS: INSULIN NPH/REGULAR 70/30 100 UNIT/ML SUBCUT SCH ×2 (08:37→16:42)
[2017-01-29] MEDS: CLOPIDOGREL 75 MG TABLET PO SCH (08:37)
[2017-01-29] MEDS: FUROSEMIDE 80 MG TABLET PO SCH (08:37)
[2017-01-29] MEDS: CILOSTAZOL 50 MG TABLET PO SCH ×2 (08:37→20:50)
[2017-01-29] MEDS: ISOSORBIDE DINITRATE 20 MG TABLET PO SCH ×3 (08:37→20:50)
[2017-01-29] MEDS: VENLAFAXINE XR 75 MG CAPSULE PO SCH (08:37)
[2017-01-29] MEDS: VALSARTAN 160 MG TABLET PO SCH (08:37)
[2017-01-29] MEDS: CELECOXIB 200 MG CAPSULE PO SCH (08:37)
[2017-01-29] MEDS: PANTOPRAZOLE 40 MG TABLET PO SCH (08:38)
--- NOTE | 2017-01-29 08:53 | EKG Report ---
Stationary ECG Study [facility] Test Date: 01/29/2017 8:53:48 AM Pat Name: JUNIOR HUBBARD Department: Room: 322 Gender: M Visualizer: : 1950 Requested by: Romeo Emery Order Number: [id number] Reading MD: SONIDO MCNULTY Intervals [place] Rate: 84 P: 68 LA: 189 QRS: -10 QRSD: 146 T: 120 QT: 402 QTc: 442 Interpretive Statements SINUS RHYTHM RIGHT BUNDLE BRANCH BLOCK Electronically Signed On 01-30-17 15:34:34 CDT by SONIDO MCNULTY [email or web address]
--- NOTE | 2017-01-29 08:56 | Cardiology Progress Note ---
Assessment and Plan (1) Status post total right knee replacement Status: Acute Assessment and plan: POD #1 s/p right knee replacement. Current Visit: Yes (2) STEFANI on CPAP Status: Chronic Assessment and plan: Patient uses CPAP routinely and without fail. Current Visit: Yes (3) Chronic kidney disease, stage III (moderate) Status: Chronic Assessment and plan: Most recent creatinine 2.5 with GFR 41. Review of old records documents renal insufficiency after July admission for volume overload and diastolic dysfunction which improved after diuresis but creatinine remained elevated 2-3. Appears baseline. Current Visit: No (4) Hypothyroid Status: Chronic Assessment and plan: Synthroid has been continued Current Visit: No (5) CAD (coronary artery disease), [place] coronary artery Status: Chronic Assessment and plan: Appears to be stable at this time. Plavix and beta roxy has been continued postoperatively. 01/29: Patient continues stable we will continue his current medications and see him as needed at rehab. Current Visit: No (6) Diabetes mellitus Status: Chronic Assessment and plan: Glucose well controlled. Current plan of care. Current Visit: No Qualifiers: (7) Dyslipidemia Status: Chronic Assessment and plan: Statin continued postoperatively. Current Visit: No (8) HTN (hypertension) Status: Chronic Assessment and plan: Blood pressure is better controlled today. Antihypertensives have been resumed postoperatively. Current Visit: No (9) Morbid obesity Status: Chronic Current Visit: No Cardiology - PN: Subj Interval history: Patient remains clinically stable. He is for transfer to rehab today. He denies anginal chest pain or dyspnea. He has had no syncope or palpitations. Exam (Progress Note) - Constitutional Vitals: Period Temp Pulse Resp BP Sys/Gardner Pulse Ox Last 24 Hr 97.5 F-100.3 F 65-89 18-20 119-144/57-82 93-97 Exam: General: Present: No Apparent Distress, Other (overweight) Neck: Present: Supple Neck, Midline Trachea, No JVD/HJR, No Masses, No Bruit Cardiac: Present: Reg Rate and Rhythm, No Murmur. Absent: Tachycardia, Bradycardia Lungs: Present: Oxygen, No Wheezes, Other (slightly coarse breath sounds left upper lobes) Neuro: Present: Grossly Intact. Absent: Tingling, Resting Tremor, Essential Tremor Abdomen: Present: Soft, Active Bowel Sounds, Other (obese). Absent: Ascites, Tender, Firm Skin: Present: Clear. Absent: Rash, Suspicious Lesions Musculoskeletal: Present: Decreased Range of Motion Extremities: Present: No Clubbing, No Cyanosis, No Edema, Normal Upper Extr. Pulses (3+ bilaterally), Normal Lower Extr. Pulses (2+ bilaterally), Capillary Refill (Normal). Absent: Edema Result/EKG - Labs CBC & BMP: 01/29/17 04:51 01/28/17 04:36 Labs: Laboratory Results - last 24 hr 01/28/17 01/28/17 01/28/17 11:13 16:14 19:33 WBC RBC Hgb Hct MCV MCH MCHC RDW Plt Count MPV Neut % (Auto) Lymph % (Auto) [place] % (Auto) Eos % (Auto) Baso % (Auto) Neut # (Auto) Lymph # (Auto) [place] # (Auto) Eos # (Auto) Baso # (Auto) Immature Gran % Nucleated RBC % Immature Gran # Nucleated RBCs # POC Glucose 197 H 185 H 183 H 01/29/17 04:51 WBC 7.9 RBC 4.13 Hgb 11.4 L Hct 34.7 L MCV 84.0 L MCH 28 MCHC 32.9 RDW 14.8 Plt Count 131 MPV 10.7 Neut % (Auto) 68.5 Lymph % (Auto) 16.3 L [place] % (Auto) 9.4 Eos % (Auto) 4.2 Baso % (Auto) 0.5 Neut # (Auto) 5.4 Lymph # (Auto) 1.3 L [place] # (Auto) 0.7 Eos # (Auto) 0.3 Baso # (Auto) 0.0 Immature Gran % 1.1 Nucleated RBC % 0.0 Immature Gran # 0.09 Nucleated RBCs # 0.00 POC Glucose Quality Measures - VTE Contraindication to Pharmacological VTE Prophylaxis: Already on Theraputic Agent , No Prophylaxis Needed Specialty Discharge - Follow Up or Referrals Follow up with: Andres Greer Jr., MD [Physician] - 1 Month (call tuesday for a [address] greer [phone])
--- NOTE | 2017-01-29 10:10 | Orthopedic Progress Note ---
Assessment and Plan (1) Status post total right knee replacement Status: Acute Assessment and plan: Continue physical therapy DVT prophylaxis Plan to discharge to swing bed early next week Current Visit: Yes Orthopedics - Subjective Interval history: Patient has no complaints this morning. He has already worked with physical therapy. On exam his close dressings clean and dry, is neurovascular intact in the right lower extremity. Exam - Constitutional Vitals: Period Temp Pulse Resp BP Sys/Gardner Pulse Ox Last 24 Hr 97.5 F-100.3 F 65-89 18-20 119-144/57-82 93-97 Results - Labs CBC & BMP: 01/29/17 04:51 01/28/17 04:36 Quality Measures - VTE Contraindication to Pharmacological VTE Prophylaxis: Already on Theraputic Agent , No Prophylaxis Needed Specialty Discharge - Follow Up or Referrals Follow up with: Andres Greer Jr., MD [Physician] - 1 Month (call tuesday for a [address] greer [phone])
[2017-01-29] MEDS: MONTELUKAST 10 MG TABLET PO SCH (20:50)
[2017-01-29] MEDS: ATORVASTATIN 40 MG TABLET PO SCH (20:50)
[2017-01-29] MEDS: ASPIRIN EC 81 MG TABLET PO SCH (20:50)
[2017-01-30 06:10] LABS: Basophils % 0.6 % (0.0-0.8); Eosinophils # 0.4 10*3/uL (0.0-0.87); Eosinophils % 5.7 % (0.00-10.9); Hematocrit 31.9 VOL% (42.0-52.0); Hemoglobin 10.3 GM/DL (14.0-18.0); Immature Granulocytes % 1.2 %; Immature Granulocytes Absolute 0.08 #; Lymphocytes # 1.4 10*3/uL (1.4-4.0); Lymphocytes % 20.1 % (21.2-54.2); Mean Corpuscular HGB Conc 32.3 GM/DL (32-36); Mean Corpuscular Hemoglobin 28 PG (27-34); Mean Corpuscular Volume 85.3 FL (87-102); Mean Platelet Volume 11.2 FL (9.6-12.0); Monocytes # 0.7 10*3/uL (0.11-0.8); Monocytes % 9.5 % (1.7-12.7); Neutrophils # 4.3 10*3/uL (1.4-7.4); Neutrophils % 62.9 % (38.7-73.9); Platelet Count 133 T/CUMM (130-400); Red Blood Count 3.74 MC/CUMM (3.8-5.5); Red Cell Distribution Width 15.1 % (9.3-17.3); White Blood Count 6.9 T/CUMM (4-12)
[2017-01-30] MEDS: LEVOTHYROXINE 175 MCG TABLET PO SCH (06:46)
[2017-01-30] MEDS: INSULIN LISPRO 100 UNIT/ML SUBCUT SCH ×4 (09:14→21:04)
[2017-01-30] MEDS: INSULIN NPH/REGULAR 70/30 100 UNIT/ML SUBCUT SCH ×2 (09:16→17:56)
[2017-01-30] MEDS: CLOPIDOGREL 75 MG TABLET PO SCH (09:30)
[2017-01-30] MEDS: FUROSEMIDE 80 MG TABLET PO SCH (09:30)
[2017-01-30] MEDS: GLIMEPIRIDE 4 MG TABLET PO SCH ×2 (09:30→20:43)
[2017-01-30] MEDS: ISOSORBIDE DINITRATE 20 MG TABLET PO SCH ×3 (09:30→20:43)
[2017-01-30] MEDS: PANTOPRAZOLE 40 MG TABLET PO SCH (09:30)
[2017-01-30] MEDS: CARVEDILOL 25 MG TABLET PO SCH ×2 (09:30→17:56)
[2017-01-30] MEDS: VALSARTAN 160 MG TABLET PO SCH (09:30)
[2017-01-30] MEDS: DOCUSATE SODIUM 100 MG CAPSULE PO SCH ×2 (09:30→20:43)
[2017-01-30] MEDS: amLODIPine 5 MG TABLET PO SCH (09:30)
[2017-01-30] MEDS: CELECOXIB 200 MG CAPSULE PO SCH (09:30)
[2017-01-30] MEDS: CILOSTAZOL 50 MG TABLET PO SCH ×2 (09:30→20:43)
[2017-01-30] MEDS: VENLAFAXINE XR 75 MG CAPSULE PO SCH (09:30)
[2017-01-30] MEDS ORDERED: ACETAMINOPHEN 325 MG TABLET PO PRN (10:04)
--- NOTE | 2017-01-30 10:06 | Orthopedic Progress Note ---
Assessment and Plan (1) Status post total right knee replacement Status: Acute Assessment and plan: Tylenol and Flonase for nasal congestion Continue physical therapy Plan to discharge to swing bed tomorrow Current Visit: Yes Orthopedics - Subjective Interval history: Patient complains of headache and nasal congestion is today. On exam she has mild serous drainage from his incision, is neurovascularly intact. Exam - Constitutional Vitals: Period Temp Pulse Resp BP Sys/Gardner Pulse Ox Last 24 Hr 98.6 F-101.6 F 76-93 18-20 108-144/53-78 89-97 Results - Labs CBC & BMP: 01/30/17 05:53 01/28/17 04:36 Quality Measures - VTE Contraindication to Pharmacological VTE Prophylaxis: Already on Theraputic Agent , No Prophylaxis Needed Specialty Discharge - Follow Up or Referrals Follow up with: Andres Greer Jr., MD [Physician] - 1 Month (call tuesday for a [address] greer [phone])
[2017-01-30] MEDS: FLUTICASONE 50 MCG NASAL SPRAY 16 GM BOTTLE BOTH NARES SCH ×2 (11:40→20:45)
[2017-01-30] MEDS: ATORVASTATIN 40 MG TABLET PO SCH (20:43)
[2017-01-30] MEDS: ASPIRIN EC 81 MG TABLET PO SCH (20:43)
[2017-01-30] MEDS: MONTELUKAST 10 MG TABLET PO SCH (20:43)
[2017-01-31] MEDS: LEVOTHYROXINE 175 MCG TABLET PO SCH (07:19)
[2017-01-31] MEDS: INSULIN LISPRO 100 UNIT/ML SUBCUT SCH ×2 (08:38→11:57)
--- NOTE | 2017-01-31 08:41 | Physician Query Form ---
CLICK EDIT DOCUMENT TO SELECT QUERY ANSWER --> OK --> SIGN Ivelisse Hawkins RN Clinical [employer] W) [phone] (f) [phone] [email or web address]: Make your selection(s) from the choices in EACH section by typing an "x" and enter comments in the comment section. Please use your independent medical judgment in providing your response. This request does not imply that any particular answer is desired or expected. CLINICAL INDICATORS: (Providers should not edit this section) Based on documentation of "history of CHF", Echo done 07/29/16 showed normal LV systolic function, EF 55% with Grade 1/4 diastolic dysfunction. Pt. treated with PO Lasix as home medication. Please provide further specificity regarding CHF. TYPE: ( ) Systolic (HFrEF - heart failure with reduced systolic function/EF) ( ) Diastolic (HFpEF - heart failure with preserved systolic function/EF) ( ) Combined Systolic/Diastolic ( ) Other, please specify: ( ) Clinically unable to determine ( ) The patient does NOT have CHF COMMENTS: PLEASE ALSO DOCUMENT RESPONSE IN PROGRESS NOTES AND/OR DISCHARGE SUMMARY Use of terms such as suspected, likely, or probable (associated with a specific diagnosis that is being evaluated, monitored, or treated as if it exists) are acceptable and can be restated in the discharge summary if not ruled out. MTDD
[2017-01-31] MEDS: INSULIN NPH/REGULAR 70/30 100 UNIT/ML SUBCUT SCH (09:55)
[2017-01-31] MEDS: MAGNESIUM HYDROXIDE SUSP 30 ML UDCUP PO PRN ×2 (10:02→14:34)
[2017-01-31] MEDS: CILOSTAZOL 50 MG TABLET PO SCH (10:03)
[2017-01-31] MEDS: CARVEDILOL 25 MG TABLET PO SCH (10:03)
[2017-01-31] MEDS: PANTOPRAZOLE 40 MG TABLET PO SCH (10:03)
[2017-01-31] MEDS: GLIMEPIRIDE 4 MG TABLET PO SCH (10:04)
[2017-01-31] MEDS: FUROSEMIDE 80 MG TABLET PO SCH (10:05)
[2017-01-31] MEDS: ISOSORBIDE DINITRATE 20 MG TABLET PO SCH ×2 (10:05→16:46)
[2017-01-31] MEDS: amLODIPine 5 MG TABLET PO SCH (10:06)
[2017-01-31] MEDS: VALSARTAN 160 MG TABLET PO SCH (10:06)
[2017-01-31] MEDS: CELECOXIB 200 MG CAPSULE PO SCH (10:06)
[2017-01-31] MEDS: DOCUSATE SODIUM 100 MG CAPSULE PO SCH (10:07)
[2017-01-31] MEDS: FLUTICASONE 50 MCG NASAL SPRAY 16 GM BOTTLE BOTH NARES SCH (10:07)
[2017-01-31] MEDS: VENLAFAXINE XR 75 MG CAPSULE PO SCH (10:07)
[2017-01-31] MEDS: CLOPIDOGREL 75 MG TABLET PO SCH (10:09)
[2017-01-31] MEDS ORDERED: BISACODYL 10 MG SUPP RECTAL PRN (11:46)
--- NOTE | 2017-01-31 13:50 | Physician Query Form ---
CLICK EDIT DOCUMENT TO SELECT QUERY ANSWER --> OK --> SIGN Ivelisse Hawkins RN Clinical [employer]ion W) [phone] (f) [phone] [email or web address]: Make your selection(s) from the choices in EACH section by typing an "x" and enter comments in the comment section. Please use your independent medical judgment in providing your response. This request does not imply that any particular answer is desired or expected. CLINICAL INDICATORS: (Providers should not edit this section) Based on documentation of "history of CHF", Echo done 07/29/16 showed normal LV systolic function, EF 55% with Grade 1/4 diastolic dysfunction. Pt. treated with PO Lasix as home medication. Please provide further specificity regarding CHF. TYPE: ( ) Systolic (HFrEF - heart failure with reduced systolic function/EF) ( ) Diastolic (HFpEF - heart failure with preserved systolic function/EF) ( ) Combined Systolic/Diastolic ( ) Other, please specify: ( ) Clinically unable to determine (x ) The patient does NOT have CHF COMMENTS: PLEASE ALSO DOCUMENT RESPONSE IN PROGRESS NOTES AND/OR DISCHARGE SUMMARY Use of terms such as suspected, likely, or probable (associated with a specific diagnosis that is being evaluated, monitored, or treated as if it exists) are acceptable and can be restated in the discharge summary if not ruled out. MTDD
[2017-01-31 16:18] VITALS: BP 134/67
== END 2017-01-31 16:30 | DRG 470 ==
LOC: N.SDSINP 05:45 → N.3E 10:09
PROVIDERS: ADMIT Orthopaedic Surgery; ATTEND Orthopaedic Surgery

== ENCOUNTER 2020-04-01 12:22 | Observation (INO) ==
[2020-04-01 14:35] LABS: Basophils % 0.4 % (0.0-0.8); Eosinophils # 0.1 10*3/uL (0.0-0.87); Eosinophils % 1.4 % (0.00-10.9); Immature Granulocytes % 0.7 %; Immature Granulocytes Absolute 0.06 #; Lymphocytes # 1.6 10*3/uL (1.4-4.0); Lymphocytes % 17.2 % (21.2-54.2); Mean Corpuscular HGB Conc 32.7 GM/DL (32-36); Mean Corpuscular Volume 87.8 FL (87-102); Mean Platelet Volume 11.3 FL (9.6-12.0); Monocytes % 6.3 % (1.7-12.7); Platelet Count 152 T/CUMM (130-400); Red Blood Count 5.58 MC/CUMM (3.8-5.5); Red Cell Distribution Width 13.8 % (9.3-17.3); White Blood Count 9.1 T/CUMM (4-12)
[2020-04-01] MEDS ORDERED: MORPHINE 4 MG/1 ML VIAL IV STA (14:42)
[2020-04-01] MEDS ORDERED: ONDANSETRON 4 MG/2 ML VIAL IV ONE (14:42)
[2020-04-01 14:53] LABS: Albumin 3.6 G/DL (3.4-5.0); Bilirubin,Total 0.6 MG/DL (0.2-1.0); Calcium 8.9 MG/DL (8.5-10.1); Osmolality,Calculated 288.1 MOS/KG (273-304); Total Protein 7.3 G/DL (6.4-8.3)
[2020-04-01 15:03] LABS: PT Patient Result 10.9 SECS (9.8-11.9)
[2020-04-01] MEDS ORDERED: ONDANSETRON 4 MG/2 ML VIAL IV PRN (15:10)
[2020-04-01] MEDS ORDERED: DEXTROSE 50% 25 GM/50 ML VIAL IV PRN (15:10)
[2020-04-01] MEDS ORDERED: ALBUTEROL/IPRATROPIUM 3 ML NEB RESP TX PRN (15:10)
[2020-04-01] MEDS ORDERED: GLUCAGON 1 MG VIAL IM PRN (15:10)
[2020-04-01] MEDS ORDERED: MORPHINE 4 MG/1 ML VIAL IV PRN (15:10)
[2020-04-01] MEDS ORDERED: ACETAMINOPHEN 325 MG TABLET PO PRN (15:10)
[2020-04-01] MEDS ORDERED: BISACODYL 5 MG TABLET PO PRN (15:10)
[2020-04-01] MEDS ORDERED: IBUPROFEN 400 MG TABLET PO PRN (15:10)
[2020-04-01] MEDS ORDERED: NITROGLYCERIN SL 0.4 MG TABLET SL PRN (15:15)
[2020-04-01] MEDS ORDERED: LACTATED RINGERS 1,000 ML IV SCH (15:30)
[2020-04-01] MEDS: MORPHINE 4 MG/1 ML VIAL IV PRN (16:17)
[2020-04-01] MEDS: INSULIN LISPRO 100 UNIT/ML SUBCUT SCH (17:19)
[2020-04-01 18:06] LABS: Apearance,Urine CLEAR (Clear); Bilirubin,Urine Negative (Negative); Blood, Urine Negative (Negative); Glucose,Urine (UA) 50 mg/dL (Negative); Hyaline Casts,Urine 1 /LPF (0-3); Ketones,Urine Negative (Negative); Mucus,Urine Occasional /LPF (Occasional); Nitrite,Urine Negative (Negative); Protein,Urine 30 MG/DL; RBC,Urine <1 /HPF (0-4); Squamous Epithelial Cell,Urine Occasional /HPF (0-10); Urine Color Yellow (Yellow); Urine Specific Gravity 1.029 (1.001-1.035); Urine Urobilinogen < 2.0 EU/DL (0.2-1.0); WBC,Urine 1 /HPF (0-6)
[2020-04-01] MEDS: INSULIN NPH/REGULAR 70/30 100 UNIT/ML SUBCUT SCH (18:17)
[2020-04-01] MEDS: carvediloL 25 MG TABLET PO SCH (18:17)
[2020-04-01] MEDS: amLODIPine 2.5 MG TABLET PO SCH (22:44)
[2020-04-01] MEDS: TAMSULOSIN 0.4 MG CAPSULE PO SCH (22:44)
[2020-04-02] MEDS: MORPHINE 4 MG/1 ML VIAL IV PRN (03:08)
[2020-04-02 05:52] LABS: Basophils % 0.3 % (0.0-0.8); Eosinophils # 0.1 10*3/uL (0.0-0.87); Eosinophils % 1.2 % (0.00-10.9); Hematocrit 46.8 VOL% (42.0-52.0); Hemoglobin 15.1 GM/DL (14.0-18.0); Immature Granulocytes % 0.8 %; Immature Granulocytes Absolute 0.06 #; Lymphocytes # 1.3 10*3/uL (1.4-4.0); Mean Corpuscular HGB Conc 32.3 GM/DL (32-36); Mean Corpuscular Volume 88.6 FL (87-102); Monocytes % 9.9 % (1.7-12.7); Neutrophils % 70.8 % (38.7-73.9); Red Blood Count 5.28 MC/CUMM (3.8-5.5); Red Cell Distribution Width 14.1 % (9.3-17.3); White Blood Count 7.4 T/CUMM (4-12)
[2020-04-02 05:56] LABS: Platelet Count 113 T/CUMM (130-400)
[2020-04-02 06:15] LABS: Platelet Estimate Adequate
[2020-04-02 06:16] LABS: Anisocytosis Slight; Macrocytosis Slight
[2020-04-02 06:20] LABS: Albumin 3.2 G/DL (3.4-5.0); Bilirubin,Total 1.9 MG/DL (0.2-1.0); Calcium 8.1 MG/DL (8.5-10.1); Osmolality,Calculated 286.7 MOS/KG (273-304); Total Protein 6.8 G/DL (6.4-8.3)
[2020-04-02] MEDS: LEVOTHYROXINE 200 MCG TABLET PO SCH (07:30)
[2020-04-02] MEDS: PANTOPRAZOLE 40 MG TABLET PO SCH (09:02)
[2020-04-02] MEDS: FUROSEMIDE 80 MG TABLET PO SCH (09:03)
[2020-04-02] MEDS: VALSARTAN 80 MG TABLET PO SCH (09:03)
[2020-04-02] MEDS: carvediloL 25 MG TABLET PO SCH ×2 (09:03→18:11)
[2020-04-02] MEDS: INSULIN NPH/REGULAR 70/30 100 UNIT/ML SUBCUT SCH ×3 (09:05→18:11)
[2020-04-02] MEDS: INSULIN LISPRO 100 UNIT/ML SUBCUT SCH ×3 (09:05→17:30)
[2020-04-02] MEDS: TAMSULOSIN 0.4 MG CAPSULE PO SCH (21:00)
[2020-04-02] MEDS: amLODIPine 2.5 MG TABLET PO SCH (21:00)
[2020-04-03 06:10] LABS: Basophils % 0.6 % (0.0-0.8); Eosinophils # 0.2 10*3/uL (0.0-0.87); Eosinophils % 2.9 % (0.00-10.9); Hematocrit 46.5 VOL% (42.0-52.0); Hemoglobin 14.7 GM/DL (14.0-18.0); Immature Granulocytes Absolute 0.07 #; Lymphocytes # 1.8 10*3/uL (1.4-4.0); Lymphocytes % 25.8 % (21.2-54.2); Mean Corpuscular HGB Conc 31.6 GM/DL (32-36); Mean Corpuscular Volume 90.6 FL (87-102); Mean Platelet Volume 11.7 FL (9.6-12.0); Monocytes % 9.5 % (1.7-12.7); Neutrophils % 60.2 % (38.7-73.9); Platelet Count 119 T/CUMM (130-400); Red Blood Count 5.13 MC/CUMM (3.8-5.5); Red Cell Distribution Width 14.3 % (9.3-17.3)
[2020-04-03] MEDS: LEVOTHYROXINE 200 MCG TABLET PO SCH (06:25)
[2020-04-03 06:30] LABS: Platelet Estimate Adequate
[2020-04-03 06:31] LABS: Anisocytosis 1+; Macrocytosis 1+
[2020-04-03 06:34] LABS: Albumin 3.1 G/DL (3.4-5.0); Bilirubin,Total 1.4 MG/DL (0.2-1.0); Calcium 8.5 MG/DL (8.5-10.1); Osmolality,Calculated 283.5 MOS/KG (273-304)
[2020-04-03] MEDS: INSULIN LISPRO 100 UNIT/ML SUBCUT SCH ×2 (08:48→12:05)
[2020-04-03] MEDS: VALSARTAN 80 MG TABLET PO SCH (08:57)
[2020-04-03] MEDS: FUROSEMIDE 80 MG TABLET PO SCH (08:57)
[2020-04-03] MEDS: carvediloL 25 MG TABLET PO SCH (08:57)
[2020-04-03] MEDS: PANTOPRAZOLE 40 MG TABLET PO SCH (08:57)
[2020-04-03] MEDS: INSULIN NPH/REGULAR 70/30 100 UNIT/ML SUBCUT SCH ×2 (08:57→12:05)
[2020-04-03] MEDS ORDERED: ASPIRIN EC 81 MG TABLET PO SCH (09:00)
[2020-04-03 11:32] VITALS: BP 136/64
== END 2020-04-03 13:32 | disposition home health service (06) ==
LOC: N.EDINP 12:22 → N.ED 12:22 → N.3E 17:13
PROVIDERS: ADMIT Surgery; ATTEND Surgery